=== PATIENT | female | born 1960 | race Caucasian/White ===

== ENCOUNTER → 2017-12-28 | Day surgery (SDC) | payer OTHER ==
[~2017-12-28] VITALS: Ht 167.6 cm; Wt 68.0 kg
[~2017-12-28] MED LIST: CALCIUM 500 +1 EAC5 PO; KEFLEX500 M1 PO; MULTIVITAMINS1 EAC9 PO; PERCOCET 5-3251 EACH PO; VITAMIN C500 M6 PO; VITAMIN E100 UNIT PO; ZYRTEC10 M6 PO
--- NOTE | 2017-12-28 14:02 | ED GENERAL ADULT ---
History of Present Illness General Chief Complaint: Hand or Wrist Injury Stated Complaint: LT HAND INJURY Source: patient, family Exam Limitations: no limitations Vital Signs & Intake/Output Vital Signs & Intake/Output Vital Signs Date Time Temp Pulse Resp B/P B/P Pulse O2 O2 Flow FiO2 Mean Ox Delivery Rate 12/28 1501 97.5 69 18 116/73 97 Room Air 12/28 1438 Room Air 12/28 1338 97.8 12/28 1334 97.8 95 30 140/90 95 Room Air Room Air ED Intake and Output 12/29 0000 12/28 1200 Intake Total 100 Output Total Balance 100 Intake, IV 100 Patient 150 lb Weight Weight Reported by Patient Measurement Method Allergies Coded Allergies: kiwi ("SWELLS UP LIKE AN ALLERGIC REACTION" 12/28/17) Triage Note: TRIAGE: 57 Y/O FEMALE FELL FROM LADDER THIS MORNING. SUSTAINED LAC TO LEFT PALMAR REGION. NO ACTIVE BLEEDING NOTED. PATIENT HYSTERICAL IN TRIAGE. SWELLING NOTED. MED WITH MOTRIN 800MG. Triage Nurses Notes Reviewed? yes HPI: This is an otherwise healthy 57-year-old female who presents with a hand injury. Patient was standing 2 steps up on a stepladder using a powersaw supervisor on the side of the building when she lost control the powersaw supervisor and fell backwards. She fell on an outstretched left hand, striking a stick or root on the ground. She did not strike her head, denies striking her thorax or hips. She did not lose consciousness. She states that the stick caused a puncture wound to the left hand and she feels like she may have a broken bone as well. She has no history of fracture. Is unsure when her last tetanus shot was. She has not been using any alcohol or intoxicating substances. She arrives in severe discomfort, complaining of pain to the left hand. (Jayden LAM,Robert) Reconcile Medications Ascorbate Calcium (Vitamin C) (Unknown Strength) TABLET (Unknown Dose) PO DAILY SUPPLEMENT (Reported) Calcium Carbonate/Vitamin D3 (Calcium 500 + D Tablet) (Unknown Strength) TABLET (Unknown Dose) PO DAILY SUPPLEMENT (Reported) Cephalexin (Keflex) 500 MG CAPSULE 1 CAP PO Q6 POSTOP Cetirizine HCl (Zyrtec) 10 MG CAPSULE 1 CAP PO DAILY ALLERGIES (Reported) Multiple Vitamin (Multivitamins) 1 EACH TABLET 1 TAB PO DAILY SUPPLEMENT ( Reported) Oxycodone HCl/Acetaminophen (Percocet 5-325 MG Tablet) 5 MG-325 MG TABLET 1 TAB PO Q8P PRN PAIN Vitamin E Acid Succinate (Vitamin E) (Unknown Strength) TABLET (Unknown Dose) PO DAILY SUPPLEMENT (Reported) (Libby LAM,[facility]) Past History Travel History Traveled to [place] past 21 day No Medical History Any Pertinent Medical History? see below for history Surgical History Surgical History: none Psychosocial History What is your primary language Maori Tobacco Use: Never used ETOH Use: occasional use Illicit Drug Use: denies illicit drug use Family History Hx Contributory? No (Robert Carpenter MD) Review of Systems Review of Systems Constitutional: Reports: no symptoms. EENTM: Reports: no symptoms. Respiratory: Reports: no symptoms. Cardiovascular: Reports: no symptoms. GI: Reports: no symptoms. Genitourinary: Reports: no symptoms. Musculoskeletal: Reports: no symptoms. Skin: Reports: no symptoms. Neurological/Psychological: Reports: no symptoms. Hematologic/Endocrine: Reports: no symptoms. Immunologic/Allergic: Reports: no symptoms. (Robert Carpenter MD) Physical Exam Physical Exam General Appearance: well developed/nourished, alert, awake, anxious, moderate distress Head: atraumatic, normal appearance Eyes: Bilateral: normal appearance. Ears, Nose, Throat: normal pharynx, normal ENT inspection Neck: normal inspection, supple, full range of motion, no midline tenderness Respiratory: normal breath sounds, chest non-tender, no respiratory distress Cardiovascular: regular rate/rhythm, normal peripheral pulses Gastrointestinal: soft, non-tender Back: normal inspection, normal range of motion, no vertebral tenderness Extremities: normal inspection, normal capillary refill, normal range of motion, no edema Skin: intact Comments: Patient has a jagged puncture wound to the left thenar eminence. She also has swelling and ecchymosis to the area of the left snuffbox. She has intact sensation and movement distally. Normal capillary refill. No tenderness to the distal radius on she holds the left thumb in adduction secondary to pain. Core Measures ACS in differential dx? No CVA/TIA Diagnosis: No Sepsis Present: No Sepsis Focused Exam Completed? No (Robert Carpenter MD) Progress Differential Diagnoses I considered the following diagnoses in my evaluation of the patient: Some concern for fracture/occult fracture/open fracture. Low suspicion for occult intracerebral/spinal injury. Doubt any thoracic trauma based on exam. Low suspicion for intoxication. Mild concern for dislocation. Plan of Care: Orders Procedure Date/time Status Durable Medical Equipment 12/28 1533 Active PROTHROMBIN TIME 12/28 134 Complete COMPREHENSIVE METABOLIC PANEL 12/28 134 Complete CBC WITHOUT DIFFERENTIAL 12/28 134 Complete TYPE & SCREEN (NOT X-MATCH) 12/28 134 Complete Laboratory Tests 12/28/17 1359: Anion Gap 13, Estimated GFR > 60, BUN/Creatinine Ratio 20.0, Glucose 95, Calcium 9.2, Total Bilirubin 0.3, AST 41 H, ALT 38, Alkaline Phosphatase 97, Total Protein 6.7, Albumin 3.9, Globulin 2.8, Albumin/Globulin Ratio 1.4, PT 11.7, INR 1.07, CBC w Diff NO MAN DIFF REQ, RBC 4.67, MCV 83.0, MCH 27.4, MCHC 33.1, RDW 14.0, MPV 8.1, Gran % 51.6, Lymphocytes % 33.5, Monocytes % 8.8, Eosinophils % 5.5 H, Basophils % 0.6, Absolute Granulocytes 3.1, Absolute Lymphocytes 2.0, Absolute Monocytes 0.5, Absolute Eosinophils 0.3, Absolute Basophils 0 We will order preop labs, medication for pain control, imaging of left hand and wrist. Plan to keep patient n.p.o. for now. Plan also for tetanus. PATIENT: SOPHIE BEATTY PRESENT AGE: 57 PATIENT ACCOUNT NO: [id number] : 61 LOCATION: [facility] ORDERING PHYSICIAN: Barry LUNA SERVICE DATE: 12/28/17 EXAM TYPE: RAD - XRY-HAND, LEFT; XRY-WRIST COMPLETE-LEFT EXAMINATION: XR HAND, LEFT XR WRIST, LEFT CLINICAL INFORMATION: Fall with pain. COMPARISON: None. TECHNIQUE: 3 views of the left hand and 3 views of the left wrist submitted. FINDINGS: A comminuted intra-articular fracture is seen at the base of the first metacarpal bone with lateral displacement of the distal fracture fragments and mild angulation. There is moderate soft tissue swelling. Scattered lucencies are seen at the level of and proximal to the fracture site suspicious for subcutaneous emphysema, correlate with open injury. The wrist and hand are otherwise normal in appearance without additional findings. IMPRESSION: Comminuted intra-articular fracture with displacement and angulation at the base of the first metacarpal bone. Moderate soft tissue swelling. Lucencies are seen lateral to the wrist and the distal radius, and subtle subcutaneous emphysema is suspected. DICTATED BY: Pedro Vargas MD DATE/TIME DICTATED:12/28/171427 FULLERETTE:PRIETO DATE/TIME TRANSCRIBED:12/28/171427 Patient administered additional dose of morphine, also given 1 g of Ancef and tetanus shot. Case discussed with on-call orthopedic surgeon. Case discussed with on-call orthopedic surgeon Dr. Batista. He comes to the ED to evaluate the patient, plans for OR with washout and possible pinning of the fracture. He plans to discharge the patient home following the procedure. Patient goes directly to the operating room from the emergency room, does not return. She remains hemodynamic Ose[place] and neurologically stable on the emergency department. On repeat assessment, compartments remain soft and there is no obvious vascular or neurologic compromise. Initial ED EKG: none (Robert Carpenter MD) Differential Diagnoses I considered the following diagnoses in my evaluation of the patient: (Khloe Souza MD) Departure Departure Time of Disposition: 1557 Disposition: STILL A PATIENT Condition: Stable Clinical Impression Primary Impression: Fracture metacarpal-open Secondary Impressions: Hand laceration Departure Forms: Customer Survey General Discharge Information (Robert Carpenter MD) Departure Prescriptions: Current Visit Scripts Cephalexin (Keflex) 1 CAP PO Q6 #56 CAP Oxycodone HCl/Acetaminophen (Percocet 5-325 MG Tablet) 1 TAB PO Q8P PRN PAIN #20 TAB PA/INTERNATIONAL CONTROLLER Co-Sign Statement Statement: ED Attending supervision documentation- [] I saw and evaluated the patient. I have also reviewed all the pertinent lab results and diagnostic results. I agree with the findings and the plan of care as documented in the PA's/INTERNATIONAL CONTROLLER's documentation. [X] I have reviewed the ED Record and agree with the PA's/INTERNATIONAL CONTROLLER's documentation. [] Additions or exceptions (if any) to the PAs/INTERNATIONAL CONTROLLER's note and plan are summarized below: [] (Khloe Souza MD) Critical Care Note Critical Care Note Critical Care Time: non-applicable (Robert Carpenter MD)
[2017-12-28 14:20] LABS: ABSOLUTE BASOPHIL COUNT 0 /CUMM (0.0-0.2); ABSOLUTE EOSINOPHIL COUNT 0.3 /CUMM (0.0-0.7); ABSOLUTE GRANULOCYTE CT 3.1 /CUMM (1.4-6.5); ABSOLUTE MONOCYTE COUNT 0.5 /CUMM (0.10-0.60); BASOPHIL % 0.6 % (0.0-2.0); EOSINOPHIL % 5.5 % (0-5); GRANULOCYTE % 51.6 % (42.2-75.2); HEMATOCRIT 38.7 % (37-47); MEAN CORPUSCULAR HGB 27.4 PG (27.0-31.0); MEAN CORPUSCULAR HGB CONC 33.1 G/DL (33.0-37.0); MEAN PLATELET VOLUME 8.1 FL (7.4-10.4); PLATELET COUNT 204 /CUMM (130-400); RED BLOOD CELL CT 4.67 /CUMM (4.20-5.40)
[2017-12-28 14:31] LABS: PT 11.7 SEC (9.4-12.5)
--- NOTE | 2017-12-28 14:37 | RADIOLOGY REPORT ---
EXAMINATION: XR HAND, LEFT XR WRIST, LEFT CLINICAL INFORMATION: Fall with pain. COMPARISON: None. TECHNIQUE: 3 views of the left hand and 3 views of the left wrist submitted. FINDINGS: A comminuted intra-articular fracture is seen at the base of the first metacarpal bone with lateral displacement of the distal fracture fragments and mild angulation. There is moderate soft tissue swelling. Scattered lucencies are seen at the level of and proximal to the fracture site suspicious for subcutaneous emphysema, correlate with open injury. The wrist and hand are otherwise normal in appearance without additional findings. IMPRESSION: Comminuted intra-articular fracture with displacement and angulation at the base of the first metacarpal bone. Moderate soft tissue swelling. Lucencies are seen lateral to the wrist and the distal radius, and subtle subcutaneous emphysema is suspected.
[2017-12-28 15:01] VITALS: BP 116/73
--- NOTE | 2017-12-28 17:04 | PN- Orthopedic ---
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 The patient relates that she was power washing her house while standing on a 6 foot stepladder. She is not sure exactly how high up stepladder she was standing but she did fall and apparently struck her left hand on the root of a tree when she fell. She did sustain either a puncture wound or laceration to the thenar eminence which did have some bleeding and she did have significant pain. Her tried to wash the wound out. They eventually decided to go to the [facility] emergency room for evaluation. X-rays of the hand revealed the above noted comminuted, intra-articular displaced fracture of the base of the thumb metacarpal with a small amount of superficial gas (air) noted within the soft tissues. I was therefore contacted to help determine management and treatment of this injury. The patient's hand is currently wrapped and covered with Betadine soaked gauze wrap. She complains of pain felt towards the base of the thumb extending into the thenar eminence. She denies any meaningful numbness or tingling felt in the digits. She also denies any prior significant problems or injuries otherwise involving the left thumb ray in the past. On examination the patient is a pleasant, cooperative, well-nourished well- developed healthy-appearing middle-aged white female looking her reported age. The hand is wrapped as noted above. After takedown of the dressings inspection of the hand does show an irregular soft tissue laceration over the thenar eminence of the palm. Specific exploration is not performed and it is difficult to determine on inspection alone the depth of penetration of the soft tissue wound. No gross visual deformity of the thumb ray which rests in good approximation to the palm. No active bleeding at this time. Tendon function and motor function not assessed. Sensation to light touch was grossly intact towards the tip of the thumb. Capillary refill at the tip of the thumb is brisk. X-rays show the comminuted, displaced, intra-articular fracture of the thumb metacarpal base as outlined above. No other significant fractures, subluxations , or dislocations. No other notable bone destructive or bone productive processes identified. The bone quality is overall good. The soft tissues do show some gas (air) in the superficial soft tissues. Assessment: Roughly 3-4 hours status post fall from mid height onto outstretched left hand hitting the root of a tree resulting in a comminuted, displaced, intra -articular fracture of the base of the thumb metacarpal with overlying soft tissue disruption and potential for this to be an open fracture. Plan: Management options were discussed with the patient at length. We did discuss the management of the fracture itself including the difficulties achieving anatomic reduction and alignment and hoahaoism of length given the comminuted nature of the fracture with several small fracture fragments. We did discuss the potential open nature of the fracture which would raise risk of infection, etc. We did discuss the intra-articular nature of the fracture raising the possibility of development of posttraumatic osteoarthritis of the thumb CMC joint. After discussion of these options and answering questions my basic recommendation was for the patient to undergo I&D of the soft tissue wound and limited exploration trying to see if we can determine whether or not this clearly goes down to bone and/or joint. I did also recommend at least provisional K wire fixation for either temporary treatment of the fracture or perhaps definitive treatment of the fracture. We did discuss the distinct possibility that the fracture reduction may not be an anatomic reduction. After discussion of the above issues the patient did decide that she would like to move forward with surgical washout and pinning of the metacarpal base fracture as is recommended. We will make arrangements to call in the OR team to do this on a semi-urgent basis within the next couple of hours at the outside. I do anticipate allowing the patient to go directly home from the PACU following her left hand surgery. Recommendations are made for the patient to see me mid week of this upcoming week for repeat radiographs and wound check on the hand.
--- NOTE | 2017-12-28 19:45 | Operative Report ---
Operative/Inv Procedure Report Surgery Date: 12/28/17 Name of Procedure: 1) Irrigation and debridement left thumb metacarpal base open fracture ( debridement of skin, subcutaneous tissue, muscle, and bone) 2) Reduction and percutaneous pinning left thumb metacarpal base fracture. Pre-Operative Diagnosis: Left thumb open, comminuted displaced metacarpal base fracture. Post-Operative Diagnosis: Same. Estimated Blood Loss: scant Surgeon/Provider Network Mgr: Arron Batista MD/[facility] surgical [facility] Anesthesia: laryngeal mask airway, block Monitors: EKG/blood pressure/oxygen saturation. IV Fluids: Lactated Ringer's. Implants: 0.045 K wires 3 Urine Output: None. Drains: None. Specimens: None. Microbiology: None. Tourniquet: 63 minutes at 250 mmHg. Complications: None known. Condition: Stable. Operative Indication: The patient is a 57-year-old left hand dominant female who sustained an injury to her left hand and thumb earlier today when she slipped off of a ladder while power washing her house. She apparently fell somewhere between 3-6 feet height from the ladder landing on an outstretched left hand landing on a root of a tree. She sustained a soft tissue wound to the thenar eminence region of the hand with some bleeding and significant pain. There was no gross deformity of the thumb but there was crepitus felt with thumb ray motion. Her tried to wash out the wound somewhat. They eventually went to the [facility] emergency room where x-rays of the patient's left hand showed a comminuted displaced unstable fracture involving the base of the thumb metacarpal. This was initially interpreted as likely being an intra-articular fracture though with traction applied to the thumb ray in the operating room the fracture appeared to be comminuted but did not appear to extend into the thumb CMC joint. Orthopedic consultation for management was called. I did discuss the risks and benefits and expected outcomes of simply washing out the thumb in the emergency room with the emergency room staff and then splinting and protecting the thumb. I discourage this and I instead recommended a formal I&D of the wound and attempt to explore whether or not this might extend down to bone or joint as well as to try to restore gross alignment of the thumb ray with a percutaneous repair using K wires for the proximal thumb metacarpal fracture. All of the patient's questions were answered at length. After discussion of the above the patient did decide that she would like to move forward with surgery and surgical consent was obtained. Operative/Procedure Note Note: The patient was brought to the operating room and placed on the operating room table in the supine position. General anesthesia via LMA was induced by the anesthesiologist. A dose of IV antibiotics had already been given a couple of hours ago in the emergency room. We did elect therefore to give another dose of Ancef as we started the case. All bony prominences were well-padded. A left- sided scalene block was administered by the anesthesia team to help with prolonged postoperative pain relief. A well-padded tourniquet was applied to the proximal portion of the left arm. Both legs were placed into Compression sleeves to hopefully cut down on risk of bilateral lower extremity venous pulling and blood clot formation and propagation. The left upper extremity was then prepped and draped in the usual sterile fashion. Inspection of the patient's thenar wound showed this to be a wound measuring about 1.5-1.75 cm in length with wound gapping of about 0.5 cm. There was some irregularity and maceration of the skin margins as well as some contamination of the visualized subcutaneous tissue. The extremity was exsanguinated and the pneumatic tourniquet was inflated to a pressure of 250 mmHg. The wound margins were cleaned up and freshened using a 15 scalpel blade to remove the grossly macerated skin margins. Sharp dissection and rongeurs were used to debride the contaminated subcutaneous tissues. The contamination appeared to involve more of the superficial subcutaneous tissues whereas contamination did not appear to extend deeply. After debridement of the subcutaneous tissues we did have some visualization of the thenar musculature. There did appear to be a small puncture wound extending towards the ulnar side of the base of the thenar musculature. Retractors were placed into the wound and this defect in the muscle did appear to extend somewhat more deeply but it was difficult to assess exactly how far this extended. There was some hemorrhage of the superficial thenar musculature about this defect but this was not appreciated further deeply. We next copiously irrigated this puncture wound with pulsatile lavage using saline with bacitracin. Once we were satisfied with the irrigation inspection of the wound showed it to be free of debris and overall looking quite clean. I elected to perform a loose soft tissue repair proceeding directly to loose approximation of the skin margins using 3 3-0 Prolene sutures placed in interrupted simple fashion. This was felt to allow room between the sutures for potential wound drainage. Our attention was now directed towards repair of the fracture at the base of the thumb metacarpal. The mini C-arm was brought in. We imaged the thumb ray with and without manual traction applied to the thumb. With traction applied gross length did appear that it could be re-achieved and gross acceptable but not anatomic alignment looked like it could be achieved by manipulating the thumb ray with traction on it. Next using fluoroscopic control while simultaneously trying to maintain longitudinal traction through the thumb IP joint by the director surgical and also trying to grossly squeeze down and manipulate the fracture fragments into gross approximation with multiple attempts I was able to finally get a 0.45 K wire running in a retrograde distal to proximal and radial to ulnar direction to get some limited fixation across the fracture segments. The K wire was extended into the proximal fragment up to the level of subchondral bone but not into the thumb CMC joint itself. Once we had limited provisional fixation I was ultimately able to place 2 more 0.45 K wires with some crossing of the K wires to achieve better fixation of the comminuted fracture. Once the K wires were in place the thumb ray was manipulated under fluoroscopic control and the distal fracture fragment did appear to move in concert with the proximal fracture fragment as well as the intervening fracture fragments. Multiple plain C arm fluoroscopic images were taken and then saved for hard copy documenting what I felt to be acceptable fracture reduction, alignment, and length having been overall achieved (albeit not exactly anatomic) . The imaging did also show multiple K wires that appear to be in good position seemingly with good fixation. With the K wires in place stabilizing the fracture we cleaned the K wire pin sites and the multiple K wire pin placement attempt sites as well as the wound at the thenar eminence with saline. The wounds were dried. We next applied bacitracin ointment about the K wire pin exit sites as well as the multiple puncture wounds from attempted K wire placement and some bacitracin actually placed over the thenar eminence wound as well. The K wires were bent and then cut and capped in standard fashion. Xeroform nonadherent dressing was applied over the thenar wound and additional Xeroform was wrapped around the K wire pin exit sites. We next applied multiple fluffed gauze dressings into the palm and around the thumb and over the dorsum of the hand. These were held in place with a couple of rolls of gauze wrap which was wrapped generally loosely. We next wrapped with Webril cast padding around the thumb and the hand and palm and extending proximally towards the proximal forearm. We next applied a 4 inch fiberglass splint applied as a thumb spica radial gutter splint to the thumb and hand and wrist and then secured this with You bandages allowing the splint to set up with the wrist in neutral position and the thumb in resting position. The left upper extremity was then placed into a Abhilash pillow for elevation. The patient was awakened from general anesthesia and transferred to the hospital stretcher and then brought to the recovery room in stable condition having tolerated the procedure well. Findings: 1) Acceptable fracture reduction, alignment, and length achieved. 2) Acceptable hardware position and fixation achieved. 3) Thenar eminence puncture wound 1.5-1.75 m centimeters x 0.5 cm potentially extending down into the thenar eminence musculature but low suspicion for extending down to the fracture or thumb CMC joint. Discharge Disposition: PACU
== END ==
LOC: ERH 13:29 → STS 17:13
PROVIDERS: Student in an Organized Health Care Education/Training Program
DX: S62.232B Other displaced fracture of base of first metacarpal bone, left hand, initial encounter for open fracture (principal); W11.XXXA Fall on and from ladder, initial encounter
CPT/HCPCS: 73110-LT; 73130-LT; 90471; 90714; 96374; 96375; 96376; J0131; J0690; J2250; J3010